=== PATIENT | female | born 1945 | race Caucasian/White ===

== ENCOUNTER 2020-12-23 11:11 | Emergency (ER) | payer OTHER ==
[~2020-12-23] VITALS: Ht 165.1 cm; Wt 47.6 kg
[2020-12-23 11:20] VITALS: BP 127/68
[2020-12-23] MEDS ORDERED: ARMOUR THYROID15 M1 PO (11:26)
[2020-12-23] MEDS ORDERED: DIAZEPAM 5 MG5 M1 PO (11:26)
[2020-12-23] MEDS ORDERED: MEDROLDOSEPACK PO (12:08)
[2020-12-23] MEDS ORDERED: FLONASE 0.05%50 MCG NASAL (12:08)
== END 2020-12-23 12:39 | disposition home or self-care (01) ==
LOC: M.ERS 11:11
DX: J30.89 Other allergic rhinitis (principal); Z79.899 Other long term (current) drug therapy